=== PATIENT | female | born 2005 ===

== ENCOUNTER 2025-09-15 13:30 | Outpatient (REF) | payer OTHER, SELFPAY ==
[2025-09-16 10:15] LABS: Bacterial Vaginosis PCR NEGATIVE (Negative); Candida Group PCR NOT DETECTED (Not Detect); Candida glab krusei PCR NOT DETECTED (Not Detect); Trichomonas vaginalis PCR NOT DETECTED (Not Detect)
[2025-09-16 10:46] LABS: CT PCR NOT DETECTED (Not Detect.); NG PCR NOT DETECTED (Not Detect.)
== END 2025-09-15 13:31 | disposition home or self-care (01) ==
LOC: HO.LNP 13:30
PROVIDERS: Visit Provider Advanced Practice Midwife
DX: N92.0 Excessive and frequent menstruation with regular cycle (principal); N94.6 Dysmenorrhea, unspecified; N93.8 Other specified abnormal uterine and vaginal bleeding; Z20.2 Contact with and (suspected) exposure to infections with a predominantly sexual mode of transmission
CPT/HCPCS: 81515; 87491; 87591

== ENCOUNTER 2025-09-15 13:30 | Outpatient (AMB) | payer OTHER, SELFPAY ==
--- NOTE | 2025-09-15 13:45 | MHC.OFFVIS ---
Vital Signs 09/15/25 13:50 Height 5 ft 5 in Weight 220 lb BMI 36.6 BP 120/72 Intake Visit Reasons: Excessive & Frequent Menses Manager Actuarial Required: No Electrical Prospecting Supervisor: Electrical Prospecting Supervisor offered & declined Accompanied by: Significant Other Is last menstrual period known: Yes Last menstrual period: 08/27/25 Post menopausal: No Patient : No HPI Comments Details: Patient is informed of ambient [facility] program and consents to its use during the visit The patient is a 19 year old female presenting for evaluation of heavy and painful periods. She is new to the office and here to establish PETROLOGIST care. Her boyfriend Marin is present and she request he remain in the room for the exam. She has had heavy periods since age 9, which have become significantly worse since a loss in November. She experiences severe premenstrual symptoms, including vomiting and nausea, starting a week before her period. The patient rates her menstrual pain as 10/10, with intense pain felt on her spine. She reports passing clots and needing to change her pad about three times a day, noting that much of the blood is expressed only when wiping. Pain management with ibuprofen, Midol, heating pads, hot showers, and walking provides no relief. The patient experienced a loss at 18 weeks gestation in November. She has a history of Nexplanon use a for 10 months, during which she was amenorrheic but had emotional side effects; it was removed to attempt conception. She has an aversion to oral contraceptive pills due to a prior negative mental health experience in 2022 and is also fearful of IUDs. The patient is not currently using any form of control, citing mental health reasons. Recent lab work done at an outside facility [facility] last week showed a normal TSH and T4 and she was not anemic, but her white blood cell count was elevated without a known cause. 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 - Menstrual history: Reports heavy and very painful periods, which have worsened since a loss. - Last menstrual period: The of last month. - Obstetric history: with one loss at 18 weeks. - Contraceptive history: Used Nexplanon for 10 months. Not currently using contraception. - Symptoms: Reports constant vaginal discharge with a self-perceived odor. 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 - Gastrointestinal: Reports nausea and vomiting for a week prior to menses. - Genitourinary: Reports menorrhagia with clots and severe dysmenorrhea (10/10 pain). Reports constant vaginal discharge with self-perceived odor. Denies dysuria. - Musculoskeletal: Reports intense back pain located on the spine with menses. - Psychiatric: Reports emotional symptoms and mood changes with prior Nexplanon use. Voices concerns about hormonal control's impact on her mental health and reports a history of a suicidal time in 2022 associated with pills ( not bcp in particular, but had taken pills in the suicide attempt). Physical Exam Vital Signs: BMI result Body Mass Index 36.6 Const Other: obese, pleasant woman General: cooperative, healthy appearing and no acute distress Orientation/consciousness: patient oriented x3 HEENT Other: glassess FT Head: Yes normocephalic Neck Neck: Yes full ROM Resp Effort & Inspection: normal respiratory effort and able to speak in complete sentences GI Inspection: Yes normal to inspection and Yes obesity Palpation (GI): Soft to palpation and nontender Other: - Pelvic: Speculum exam reveals a healthy-appearing cervix with some mucus present. On bimanual exam, the uterus is not enlarged, with no tenderness on palpation of the uterus or adnexa. External Female Exam: normal external appearance and normal appearance of the urethra Neuro General: patient oriented x3 Extrem General: Yes full ROM Assessment & Plan Assessment & Plan (1) Menorrhagia with regular cycle: Code(s): N92.0 - Excessive and frequent menstruation with regular cycle (2) Dysmenorrhea: Code(s): N94.6 - Dysmenorrhea, unspecified Plan Assessment and Plan 1. Menorrhagia and Dysmenorrhea The patient has a long-standing history of heavy, painful periods, which have worsened after a recent second-trimester loss. Her symptoms are severe, rated 10/10, and are associated with significant premenstrual nausea and vomiting. The differential diagnosis includes structural abnormalities such as uterine fibroids or ovarian cysts. Recent outside labs rule out anemia and thyroid dysfunction as causes. A pelvic exam was performed today to rule out infection, and swabs were taken. A pelvic ultrasound will be ordered to assess for structural causes. We will discuss management options, including hormonal therapies like an IUD, after the workup is complete. The patient has expressed significant hesitation about hormonal methods and IUDs. 2. Contraceptive Counseling The patient is not currently using any contraception and has significant reservations about hormonal methods due to past negative mental health experiences with OCPs and mood changes with Nexplanon. She also expressed fear of an IUD. Information regarding the IUD as a treatment for heavy menstrual bleeding was provided via a pamphlet. A definitive plan for contraception is deferred until the follow-up visit after her diagnostic evaluation is complete. 3. Vaginal Discharge The patient reports a constant discharge with a self-perceived odor. Vaginal swabs were collected during the pelvic exam to investigate for infectious etiologies. Discussion Notes I discussed the diagnostic plan for her heavy and painful periods with the patient. I explained that we would perform a pelvic exam today to check for infection and order a pelvic ultrasound to look for structural causes like fibroids or cysts. We reviewed her recent lab work from an outside facility, which showed normal thyroid function and no anemia, but an unexplained elevated white count. I introduced hormonal options, like the IUD, as a potential treatment for heavy bleeding, acknowledging her fears and providing her with an informational pamphlet. The plan is for her to get the ultrasound and then follow up in about two weeks to review all results and decide on a treatment plan. I provided her with return precautions, instructing her to go to the hospital for bleeding that saturates a pad every hour for more than four hours. Orders: Orders CT NG by PCR Vag/Cerv Today N93.8 - Other specified abnormal uterine and vaginal bleeding Bacterial Vaginosis Panel Today N93.8 - Other specified abnormal uterine and vaginal bleeding US pelvic and transvaginal 1 Week N93.8 - Other specified abnormal uterine and vaginal bleeding Patient Instructions: Discussion Notes I discussed the diagnostic plan for her heavy and painful periods with the patient. I explained that we would perform a pelvic exam today to check for infection and order a pelvic ultrasound to look for structural causes like fibroids or cysts. We reviewed her recent lab work from an outside facility, which showed normal thyroid function and no anemia, but an unexplained elevated white count. I introduced hormonal options, like the IUD, as a potential treatment for heavy bleeding, acknowledging her fears and providing her with an informational pamphlet. The plan is for her to get the ultrasound and then follow up in about two weeks to review all results and decide on a treatment plan. I provided her with return precautions, instructing her to go to the hospital for bleeding that saturates a pad every hour for more than four hours. - Please go to the senior front end engineer to schedule your pelvic ultrasound. - Schedule a follow-up appointment in about two weeks to go over your results and make a plan. - You do not need any new blood work done at this time. - Go to the hospital if you have very heavy vaginal bleeding where you are soaking through one pad every hour for more than four hours. - Please sign a release form so we can obtain your medical records from [facility]. Coding Level of Care Code New Pt Level 3 (63085) Diagnoses Menorrhagia with regular cycle N92.0 Dysmenorrhea N94.6
[2025-09-15 13:50] VITALS: BP 120/72; BMI 36.6
--- OUTSIDE RECORDS SUMMARY | 2025-09-15 20:40 | XMS_ITS | Clinical Summary ---
Author Organization [facility] Address [address] [place] [address] Phone Care Team Providers Care Supervisor Wheel Shop Name Role Phone Reyna Brooks MD Primary C are Provider Allergies No known active allergies Medications VITAMIN B-6 25 MG tablet Take by mouth daily. 09/03/20 24 Active NIGHTTIME SLEEP-AID, DOXYLAMN, 25 mg tablet Take by mouth. 09/03/20 24 Active multivitamin with minerals Take by mouth. Activ e aspirin 81 mg chewable tabletIndications: Supervision of normal first teen in first trimester Take 2 tablets (162 mg total) by mouth daily. 180 tablet 3 09/06/20 24 Active Additional Information Patient not taking.Reported on 10/22/2024 diphenhydrAMINE 25 mg ODT Take 1 tablet (25 mg total) by mouth nightly at bedtime as needed. 30 tablet 1 09/24/20 24 Active Additional Information Patient not taking.Reported on 10/22/2024 ondansetron (ZOFRAN-ODT) 4 MG disintegrating tablet Take 1 tablet (4 mg total) by mouth every 6 (six) hours as needed for nausea. 20 tablet 1 10/22/19 25 Active Active Problems Problem Noted Date Diagnosed Date Maternal varicella, non-immune 10/02/2024 Overview (10/02/2024): Offer varivax pp Obesity in 09/24/2024 Overview (09/24/2024): Obesity in (BMI >30) BMI at Intake 37 Date Obesity plan of care discussed Pre- BMI > 45 transfer to tertiary care - BMI measured at first in- person appointment, applies to patients entering entering into care from 04/05/24 on Recommend daily baby aspirin (162 mg daily) if another risk factor is present (nulliparity, family h/o pre-eclampsia in mother or sister, age >= 35, IVF , previous with SGA, previous stillbirth, interval >= 10 years between pregnancies) First trimester screen for diabetes - HgbA1c or 1-hr glucose tolerance test Nutrition counseling 11-20lb weight gain surveillance: Pre- BMI 35.0-39.9, weekly testing at 36 weeks, EFW at 32 and 36 weeks Pre- BMI 40 or more, weekly testing at 34 weeks, EFW 32 and 36 weeks Induction only if indicated PP lovenox according to guidelines Hx of suicide attempt 09/24/2024 Overview (09/24/2024): Prior to . Pt tried to overdose on pills. Pt states she was in-patient and then received outpatient therapy. No meds/therapy as of FOB, pt reports feeling stable Assessment & Plan (09/24/2024 2:18 PM EST): Prior to . Pt tried to overdose on pills. Pt states she was in-patient and then received outpatient therapy. No meds/therapy as of FOB, pt reports feeling stable Supervision of normal first teen in first trimester 09/10/2024 Overview (10/22/2024): Please give info on [facility] at [facility] No OB-CMI score has been filled out for this encounter. Group PN care? * screening - plans cfdna and carrier screening neg Baby ASA- indicated (obesity, nullip, mom and grandmother had PEC) reviewed and rx sent at intake Rh * GC/Chlam * PAP too young for paps Flu declines COVID-19 received vaccine x 2--rec booster at FOB Hgb * GTT * Repeat RPR * Tdap * RSV * EPDS * PPBC * GBS * Feeding Plan considering, pt's mom very supportive of FOB: Orthodoxy Assessment & Plan (10/22/2024 4:32 PM EST): Olga here with her mom and Orthodoxy. Reports feeling ongoing n/v. Some days better than other. Doesn't seem to matter what she eats. Was seen at [facility] for n/v and feels much better than she did at that point. Would like to try zofran again. Rx provided We discussed upcoming FAS, which was ordered. Advised expectation for quickening CHRIS 4 wks Assessment & Plan (09/24/2024 2:16 PM EST): Olga is an 18yo @ 9+6 wks by sure, normal LMP, c/w 1T US Pt reports feeling better since starting unisom/b6. We discussed 1T comforts and typically well tolerated food. Pt here with her mom and FOB Orthodoxy who both appear very supportive of pt and . Pt oriented to practice Reviewed 1T US Ordered all 1T labs, pt accepts cfDNA and carrier screening as well. Limited PE completed Social History Tobacco Use Types Packs/Day Years Used Date Smoking Tobacco: Never Smokeless Tobacco: Never Tobacco Cessation:Counseling Given: Not Answered Alcohol Use Standard Drinks/Week Comments Never 0 (1 standard drink = 0.6 oz pur e alcohol) Education Answer Date Recorded Are you interested in more education? Not on tara e 09/03/2024 Are you concerned about learning? Not on file 09/03/2024 No 09/03/2024 No 09/03/2024 Digital Access Answer Date Recorded No 09/03/2024 No 09/03/2024 Reliable internet access at home? Not on file 09/03/2024 Device with a working camera? Not on file Comments No Sex and Gender Information Value Date Recorded Sex Assigned at Not on file Legal Sex Female 3:22 PM EST Gender Identity Not on file Sexual Orientation Not on file Last Filed Vital Signs Vital Sign Reading Time Taken Comments Blood Pressure 138/76 10/22/2024 4:17 PM EST Pulse - - Temperature - - Respiratory Rate - - Oxygen Saturation - - Inhaled Oxygen Concentration - - Weight 102.9 kg (226 lb 12. 8 oz) 10/22/2024 4:17 PM EST Height 165.1 cm (5' 5 ) 09/06/2024 9:46 AM EST Body Mass Index 37.74 09/06/2024 9:46 AM EST Body Mass Index Percentile 98.17% 10/22/2024 4:1 7 PM EST Growth Chart: [facility] (Girls, 2- 20 Years) Plan of Treatment Health Maintenance Due Date Last Done Comments DEVELOPMENTAL/BEHAVIORAL SCREENING (PHQ, PSC, or SWYC) 2008 DEPRESSION SCREENING 2017 CHLAMYDIA SCREENING 2021 MENINGOCOCCAL VACCINES (B) (1 of 2 - Standard) 2021 ADOLESCENT UNIVERSAL LIPID SCREENING 2022 INFLUENZA VACCINE (#1) 2025 09/04/2020 COVID-19 VACCINE (3 - season) 2025 04/24/2021, 04/03/2021 SMOKING Hx and SMOKELESS TOBACCO SCREENING 09/06/2025 09/06/2024 BMI ASSESSMENT 10/22/2025 10/22/2024 COMBINED DTaP,Tdap,Td (7 - Td or Tdap) 03/05/2027 03/05/2017, 02/05/2010, 02/05/2010, Additional history exists HEPATITIS B VACCINES Completed 09/18/2006, 01/10/2006, 2005, Additional history exists HIB VACCINES Completed 01/16/2007, 01/04, 06/19/2006, Additional history exists PNEUMOCOCCAL VACCINES (0-49 years) Aged Out 01/16/2007, 09/18/2006, 03/13/2006, Additional history exists No longer eligible based on patient's age to complete this topic HEPATITIS A VACCINES Completed 03/18/2008, 01/17/20 07 MMR VACCINES Completed 02/07/2011, 05/0 02/2011, 01/16/2007 VARICELLA VACCINES Completed 02/07/2011, 0 02/07/2011, 01/16/2007 HPV VACCINES Completed 03/15/2019, 03/05/2017 MENINGOCOCCAL VACCINES (ACWY) Completed 01/28/2022, 03/05/2017 HEPATITIS C SCREENING Completed 09/27/2024, 024 HIV ONE-TIME SCREENING (18-65 YEARS) Completed 09/27/2024 Medical Devices Not on file Procedures Procedure Name Priority Date/Time Associated Diagnosis Comments HEPATITIS C ANTIBODY, QUALITATIVE Routine 09/27/2024 11:07 AM EST Need for hepatitis C screening test from Last 3 Months or Most Recently Relevant to Health Maintenance Results * Hepatitis C antibody, qualitative (09/27/2024 11:07 AM EST) HCV NON-REACTIV E NON-REACTI VE [facility] Blood 09/27/2024 11:0 7 AM EST 09/27/2024 11:16 AM EST us Amanda Díaz CNM LAB BLOOD BKR ORDERABLES F inal Result [facility] [address] [place] [address] from Last 3 Months or Most Recently Relevant to Health Maintenance Insurance [address] [place] [address]O [facility] Care Teams Supervisor Wheel Shop Relationship Specialty Start Date End Date Reyna Brooks MD [facility] [place] [address] PCP - General Pediatrics 09/03/24 Additional Source Comments The information contained in this document represents components of the legal health record. It is not the complete legal health record.[facility]
--- OUTSIDE RECORDS SUMMARY | 2025-09-15 20:40 | XMS_ITS | Patient Health Record ---
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 Name Role Phone MEGAN WHELAN Unavailable [phone] Allergies No Known Allergies Results Component Value Reference Range Flag Notes Iron and TIBC-[id number] Reviewed date:09/07/2025 04:21:47 PM Interpretation: Performing Lab:[facility] [place], [address] [place] [address], Phone - [phone], Director - MDJodry Notes/Report: Iron Bind.Cap.(TIBC) 406 250-450 ug/dL UIBC 340 131-425 ug/dL Iron 66 27-159 ug/dL Iron Saturation 16 15-55 % Vitamin [id number] Reviewed date:09/07/2025 04:21:47 PM Interpretation: Performing Lab:[facility] [place], [facility] [place], Phone - [phone], Director - MDJodry Notes/Report: Vitamin B12 150 899-9512 pg/mL Urinalysis, Complete-[id number] Reviewed date:09/08/2025 01:17:04 PM Interpretation: Performing Lab:[facility], [address] [place] [address], Phone - [phone], Director - MDJodry Notes/Report: Specific [place] 1.027 1.005-1.030 pH 5.5 5.0-7.5 Urine-Color Yellow Yellow Appearance Cloudy Clear A WBC Esterase Trace Negative A Protein 1+ Negative/Trace A Glucose Negative Negative Ketones Negative Negative Occult Blood 3+ Negative A Bilirubin Negative Negative Urobilinogen,Semi-Qn 1.0 0.2-1.0 mg/dL Nitrite, Urine Negative Negative Microscopic Examination See below: M icroscopic was indicated and was performed. WBC 11-30 0 - 5 /hpf A RBC 11-30 0 - 2 /hpf A Epithelial Cells (non renal) >10 0 - 10 /hpf A Casts None seen None seen /lpf Bacteria Few None seen/Few T4 and TSH-[id number] Reviewed date:09/07/2025 04:21:47 PM Interpretation: Performing Lab:[facility] [place], [address] [facility], Phone - [phone], Director - Gm Notes/Report: TSH 1.980 0.450-4.500 uIU/mL Thyroxine (T4) 7.6 4.5-12.0 ug/dL Vitamin D, 96-Bidtbcp-[id number] Reviewed date:09/08/2025 01:16:58 PM Interpretation: Performing Lab:[facility] [place], [address] [place] [address], Phone - [phone], Director - Gm Notes/Report: Vitamin D, 25-Hydroxy 12.5 30.0-100.0 ng/mL L Vitamin D deficiency has been defined by the [place] [employer] and an Endocrine Society practice guideline as a level of serum 25-OH vitamin D less than 20 ng/mL (1,2). The Endocrine Society went on to further define vitamin D insufficiency as a level between 21 and 29 ng/mL (2). 1. IOM ([place] [employer]). 2010. Dietary reference intakes for calcium and D. [place]: The National Academies Press. 2. Brittany MF, Anshul GERARD, Colleen JALLOH, et al. Evaluation, treatment, and prevention of vitamin D deficiency: an Endocrine Society clinical practice guideline. JCEM. 2010; 96(7):1911-30. Lipid Panel-[id number] Reviewed date:09/08/2025 01:16:58 PM Interpretation: Performing Lab:[facility] [place], [address] [facility], [place], Phone - [phone], Director - Gm Notes/Report: Cholesterol, Total 206 100-169 mg/dL H Triglycerides 335 0-89 mg/dL H HDL Cholesterol 37 >39 mg/dL L VLDL Cholesterol Evelio 58 5-40 mg/dL H LDL Chol Calc (NIH) 111 0-109 mg/dL H T4F+T3Free Reviewed date:09/07/2025 04:21:47 PM Interpretation: Performing Lab:[facility] [place], [address] [place] [address], Phone - [phone], Director - Gm Notes/Report: Thyroxine (T-4), Serum 9.7 Reference Range: Adults: 4.2 - 13.0 Free T-3 3.6 Reference Range: 11 - 19y: 2.3 - 5.0 Triiodothyronine (T-3), Serum 141 Reference Range: Adults: 55 - 170 Free Thyroxine 1.31 Reference Range: 11 - 19y: 0.93 - 1.60 CBC With Differential/Platel et-[id number] Reviewed date:09/08/2025 01:16:58 PM Interpretation: Performing Lab:[facility] [place], [address] [place] [address], Phone - [phone], Director - Gm Notes/Report: WBC 15.0 3.4-10.8 x10E3/uL H RBC 5.15 3.77-5.28 x10E6/uL Hemoglobin 15.2 11.1-15.9 g/dL Hematocrit 46.0 34.0-46.6 % MCV 89 79-97 fL MCH 29.5 26.6-33.0 pg MCHC 33.0 31.5-35.7 g/dL RDW 12.5 11.7-15.4 % Platelets 441 150-450 x10E3/uL Neutrophils 63 Not Estab. % Lymphs 27 Not Estab. % Monocytes 5 Not Estab. % Eos 4 Not Estab. % Basos 1 Not Estab. % Neutrophils (Absolute) 9.5 1.4-7.0 x10E3/uL H Lymphs (Absolute) 4.0 0.7-3.1 x10E3/uL H Monocytes(Absolute) 0.7 0.1-0.9 x10E3/uL Eos (Absolute) 0.6 0.0-0.4 x10E3/uL H Baso (Absolute) 0.1 0.0-0.2 x10E3/uL Immature Granulocytes 0 Not Estab. % Immature Grans (Abs) 0.0 0.0-0.1 x10E3/uL Comp. Metabolic Panel (14)-3 [id number] Reviewed date:09/07/2025 04:23:02 PM Interpretation: Performing Lab:[facility] [place], [address] [place] [address], Phone - [phone], Director - Gm Notes/Report: Glucose 91 70-99 mg/dL BUN 7 6-20 mg/dL Creatinine 0.77 0.57-1.00 mg/dL eGFR 114 >59 mL/min/1.73 BUN/Creatinine Ratio 9 9-23 Sodium 141 134-144 mmol/L Potassium 4.5 3.5-5.2 mmol/L Chloride 104 96-106 mmol/L Carbon Dioxide, Total 25 20-29 mmol/L Calcium 9.8 8.7-10.2 mg/dL Protein, Total 7.4 6.0-8.5 g/dL Albumin 4.5 4.0-5.0 g/dL Globulin, Total 2.9 1.5-4.5 g/dL Bilirubin, Total <0.2 0.0-1.2 mg/dL Alkaline Phosphatase 107 42-106 IU/L H AST (SGOT) 17 0-40 IU/L ALT (SGPT) 14 0-32 IU/L Reason For Referral Reason Evaluate & Treat H eavy Periods Diagnosis 1 Excessive and freque nt menstruation with regular cycle (N92.0) Referral Organization [facility] Referring Provider First Name MEGAN Referring Provider Last Name TIP Referring Provider Speciality Internal edicine Referred Provider Specialty OB - Gynecol ogy General Notes Richa Scales 1 10/24/2024 11:24:05 AM EST > Referral to [facility] and faxed, p. [phone], f. [phone] Referral Priority Routine Reason Evaluate & Treat M ental Health Concerns Diagnosis 1 Mental health proble m (F48.9) Referral Organization [facility] Referring Provider First Name MEGAN Referring Provider Last Name TIP Referring Provider Speciality Internal edicine Referred Provider Specialty Psychiatry General Notes Richa Scales 1 10/24/2024 11:26:03 AM EST > Referral to [facility] psychiatry, gave patient information, patient will book themselves Referral Priority Routine Medications Medication SIG (Take, Route, Frequency, Duration) Notes Start Date End Date Status Cholecalciferol 1.25 MG (58218 UT) Capsule 1 capsule Orally once a week; Duration: 60 days 09/08/2025 Active Social History Section Notes: Patient is a [employer]PER[employer] and in [employer] Problems Problem Type SNOMED Code ICD Code Onset Dates Problem Status W/U Status Risk Notes Problem Vitamin B>12< deficiency anaemia (00284741) Vitamin B12 deficiency anemia, unspecified (D51.9) Active confirmed Problem Excessive and frequent menstruation (550653687) Excessive and frequent menstruation with regular cycle (N92.0) Active confirmed Problem Anxiety (94298101) Anxiety (F41.9) Active confirmed Problem Vitamin D deficiency (52231705) Vitamin D deficiency (E55.9) Active confirmed Problem Leukocytosis (030751958) Leukocytosis, unspecified type (D72.829) Active confirmed Problem Mental health problem (089451951) Mental health problem (F48.9) Active confirmed Vital Signs Heart Rate 82 /min 08/24/2025 Oximetry 99 % 08/24/2025 Blood pressure diastolic 80 mm Hg 08/24/2025 BMI Percentile 97.89 % 08/24/2025 Height 65 in 08/24/2025 Blood pressure systolic 132 mm Hg 08/24/2025 Weight 227.3 lbs 08/24/2025 BMI 37.82 kg/m2 08/24/2025 Encounters Encounter Location Date Provider Diagnosis [facility] [address] [place] [address] 08/24/2025 MEGAN TIP Bleeding R58 ; Menta l health problem F48.9 ; Depression F32.A ; Anxiety F41.9 and Blood pressure check Z01.30 [facility] [address] [address] 09/08/2025 MEGAN TIP Leukocytosis, unspec ified type D72.829 and Lipid screening Z13.220 Assessments Encounter Date Diagnosis (ICD Code) Assessment Notes Treatment Notes Treatment Clinical Notes Section Notes 08/24/2025 Bleeding (ICD-10 - R58) Olga is a 19-year-old female who presents to the office today as a new patient. Medication, surgeries, medical history all reviewed with patient in office today. #Previable PPROM: Performed in November 2024 #Hypertension: Was previously evaluated by [facility] cardiology on 02/15/2025 due to hypertension however patient did not return to the office for 3 months follow-up.. At this appointment an echocardiogram was ordered however does not appear as though it was obtained.. Blood pressure in office today is 132/80, will correlate with lab work. #Blood clots (MENSES): Patient admits to heavy blood clotting with her periods after her procedure that was done in November. She admits that she was seen by gynecology earlier this year after her vaginal delivery and a D&C for retained placenta. Patient would not like to trial control at this time, I advised patient to be seen by [facility]ERR[facility] WORK[facility] for further evaluation as this has been occurring since her D&C in November. She would like to be seen at [facility], patient referred to [facility] at this time. #Mental health concerns: Patient admits that all of the SSRIs that she has tried in the past caused suicidal ideation. Upon reviewing patient's PHQ-9 her answer for thoughts of hurting yourself or wish to be better off she circled several days. Upon questioning she states that she did have a suicide attempt in 2022 where she took pills and immediately told her mother. She admits that she was hospitalized inpatient. Patient admits that she does not have a plan currently, she states that the majority of her mental health concerns do stem from grief. Patient given multiple different resources on therapy, psychiatry, crisis and urgent care mental health in the office today. Additionally placing [facility] psychiatrist referral for the patient. Patient would benefit from speaking with psychiatrist in regards to trialing different medications #Therapy: Currently in therapy due to grief from her loss of her fetus in November 2024. All questions have been answered to patient's satisfaction. Patient verbalized understanding of diagnosis and treatments explained. Advised to call sooner prior to next visit it any questions/concerns arise. Case discussed with Stephen NGO who reviewed the assessment and plan. Chart, medications, labs, vital signs reviewed. Dictation was accomplished with the use of Correlor voice recognition software, which is prone to medical misidentifications and grammatical errors. This are unintentional and the practitioner does try to identify and correct these, but some could still be present. Please do not hesitate to contact practitioner for clarification. 08/24/2025 Mental health problem (ICD-10 - F48.9) Olga is a 19-year-old female who presents to the office today as a new patient. Medication, surgeries, medical history all reviewed with patient in office today. #Previable PPROM: Performed in November 2024 #Hypertension: Was previously evaluated by [facility] cardiology on 02/15/2025 due to hypertension however patient did not return to the office for 3 months follow-up.. At this appointment an echocardiogram was ordered however does not appear as though it was obtained.. Blood pressure in office today is 132/80, will correlate with lab work. #Blood clots (MENSES): Patient admits to heavy blood clotting with her periods after her procedure that was done in November. She admits that she was seen by gynecology earlier this year after her vaginal delivery and a D&C for retained placenta. Patient would not like to trial control at this time, I advised patient to be seen by [facility]ERR[facility] WORKER for further evaluation as this has been occurring since her D&C in November. She would like to be seen at [facility], patient referred to [facility] at this time. #Mental health concerns: Patient admits that all of the SSRIs that she has tried in the past caused suicidal ideation. Upon reviewing patient's PHQ-9 her answer for thoughts of hurting yourself or wish to be better off she circled several days. Upon questioning she states that she did have a suicide attempt in 2022 where she took pills and immediately told her mother. She admits that she was hospitalized inpatient. Patient admits that she does not have a plan currently, she states that the majority of her mental health concerns do stem from grief. Patient given multiple different resources on therapy, psychiatry, crisis and urgent care mental health in the office today. Additionally placing [facility] psychiatrist referral for the patient. Patient would benefit from speaking with psychiatrist in regards to trialing different medications #Therapy: Currently in therapy due to grief from her loss of her fetus in November 2024. All questions have been answered to patient's satisfaction. Patient verbalized understanding of diagnosis and treatments explained. Advised to call sooner prior to next visit it any questions/concerns arise. Case discussed with Stephen NGO who reviewed the assessment and plan. Chart, medications, labs, vital signs reviewed. Dictation was accomplished with the use of Correlor voice recognition software, which is prone to medical misidentifications and grammatical errors. This are unintentional and the practitioner does try to identify and correct these, but some could still be present. Please do not hesitate to contact practitioner for clarification. 09/08/2025 Leukocytosis, unspecified type (ICD-10 - D72.829) 09/08/2025 Lipid screening (ICD-10 - Z13.220) 08/24/2025 Depression (ICD-10 - F32.A) Olga is a 19-year-old female who presents to the office today as a new patient. Medication, surgeries, medical history all reviewed with patient in office today. #Previable PPROM: Performed in November 2024 #Hypertension: Was previously evaluated by [facility] cardiology on 02/15/2025 due to hypertension however patient did not return to the office for 3 months follow-up.. At this appointment an echocardiogram was ordered however does not appear as though it was obtained.. Blood pressure in office today is 132/80, will correlate with lab work. #Blood clots (MENSES): Patient admits to heavy blood clotting with her periods after her procedure that was done in November. She admits that she was seen by gynecology earlier this year after her vaginal delivery and a D&C for retained placenta. Patient would not like to trial control at this time, I advised patient to be seen by DERRICK WORKER for further evaluation as this has been occurring since her D&C in November. She would like to be seen at [facility], patient referred to [facility] at this time. #Mental health concerns: Patient admits that all of the SSRIs that she has tried in the past caused suicidal ideation. Upon reviewing patient's PHQ-9 her answer for thoughts of hurting yourself or wish to be better off she circled several days. Upon questioning she states that she did have a suicide attempt in 2022 where she took pills and immediately told her mother. She admits that she was hospitalized inpatient. Patient admits that she does not have a plan currently, she states that the majority of her mental health concerns do stem from grief. Patient given multiple different resources on therapy, psychiatry, crisis and urgent care mental health in the office today. Additionally placing [facility] psychiatrist referral for the patient. Patient would benefit from speaking with psychiatrist in regards to trialing different medications #Therapy: Currently in therapy due to grief from her loss of her fetus in November 2024. All questions have been answered to patient's satisfaction. Patient verbalized understanding of diagnosis and treatments explained. Advised to call sooner prior to next visit it any questions/concerns arise. Case discussed with Stephen NGO who reviewed the assessment and plan. Chart, medications, labs, vital signs reviewed. Dictation was accomplished with the use of Correlor voice recognition software, which is prone to medical misidentifications and grammatical errors. This are unintentional and the practitioner does try to identify and correct these, but some could still be present. Please do not hesitate to contact practitioner for clarification. 08/24/2025 Anxiety (ICD-10 - F41.9) Olga is a 19-year-old female who presents to the office today as a new patient. Medication, surgeries, medical history all reviewed with patient in office today. #Previable PPROM: Performed in November 2024 #Hypertension: Was previously evaluated by [facility] cardiology on 02/15/2025 due to hypertension however patient did not return to the office for 3 months follow-up.. At this appointment an echocardiogram was ordered however does not appear as though it was obtained.. Blood pressure in office today is 132/80, will correlate with lab work. #Blood clots (MENSES): Patient admits to heavy blood clotting with her periods after her procedure that was done in November. She admits that she was seen by gynecology earlier this year after her vaginal delivery and a D&C for retained placenta. Patient would not like to trial control at this time, I advised patient to be seen by [facility]ERR[facility] WORKER for further evaluation as this has been occurring since her D&C in November. She would like to be seen at [facility], patient referred to [facility] at this time. #Mental health concerns: Patient admits that all of the SSRIs that she has tried in the past caused suicidal ideation. Upon reviewing patient's PHQ-9 her answer for thoughts of hurting yourself or wish to be better off she circled several days. Upon questioning she states that she did have a suicide attempt in 2022 where she took pills and immediately told her mother. She admits that she was hospitalized inpatient. Patient admits that she does not have a plan currently, she states that the majority of her mental health concerns do stem from grief. Patient given multiple different resources on therapy, psychiatry, crisis and urgent care mental health in the office today. Additionally placing [facility] psychiatrist referral for the patient. Patient would benefit from speaking with psychiatrist in regards to trialing different medications #Therapy: Currently in therapy due to grief from her loss of her fetus in November 2024. All questions have been answered to patient's satisfaction. Patient verbalized understanding of diagnosis and treatments explained. Advised to call sooner prior to next visit it any questions/concerns arise. Case discussed with Stephen NGO who reviewed the assessment and plan. Chart, medications, labs, vital signs reviewed. Dictation was accomplished with the use of Correlor voice recognition software, which is prone to medical misidentifications and grammatical errors. This are unintentional and the practitioner does try to identify and correct these, but some could still be present. Please do not hesitate to contact practitioner for clarification. 08/24/2025 Blood pressure check (ICD-10 - Z01.30) Olga is a 19-year-old female who presents to the office today as a new patient. Medication, surgeries, medical history all reviewed with patient in office today. #Previable PPROM: Performed in November 2024 #Hypertension: Was previously evaluated by [facility]ology on 02/15/2025 due to hypertension however patient did not return to the office for 3 months follow-up.. At this appointment an echocardiogram was ordered however does not appear as though it was obtained.. Blood pressure in office today is 132/80, will correlate with lab work. #Blood clots (MENSES): Patient admits to heavy blood clotting with her periods after her procedure that was done in November. She admits that she was seen by gynecology earlier this year after her vaginal delivery and a D&C for retained placenta. Patient would not like to trial control at this time, I advised patient to be seen by [facility] WORKER for further evaluation as this has been occurring since her D&C in November. She would like to be seen at [facility], patient referred to [facility] at this time. #Mental health concerns: Patient admits that all of the SSRIs that she has tried in the past caused suicidal ideation. Upon reviewing patient's PHQ-9 her answer for thoughts of hurting yourself or wish to be better off she circled several days. Upon questioning she states that she did have a suicide attempt in 2022 where she took pills and immediately told her mother. She admits that she was hospitalized inpatient. Patient admits that she does not have a plan currently, she states that the majority of her mental health concerns do stem from grief. Patient given multiple different resources on therapy, psychiatry, crisis and urgent care mental health in the office today. Additionally placing [facility] psychiatrist referral for the patient. Patient would benefit from speaking with psychiatrist in regards to trialing different medications #Therapy: Currently in therapy due to grief from her loss of her fetus in November 2024. All questions have been answered to patient's satisfaction. Patient verbalized understanding of diagnosis and treatments explained. Advised to call sooner prior to next visit it any questions/concerns arise. Case discussed with Stephen NGO who reviewed the assessment and plan. Chart, medications, labs, vital signs reviewed. Dictation was accomplished with the use of Correlor voice recognition software, which is prone to medical misidentifications and grammatical errors. This are unintentional and the practitioner does try to identify and correct these, but some could still be present. Please do not hesitate to contact practitioner for clarification. Plan Of Treatment Pending Test Test Name Order Date LIPID PANEL, STANDARD 08/24/2025 LIPID PANEL, STANDARD 09/08/2025 IRON, TIBC AND FERRITIN PANEL 08/24/2025 COMPREHENSIVE METABOLIC PANEL 08/24/2025 CBC (INCLUDES DIFF/PLT) 08/24/2025 CBC (INCLUDES DIFF/PLT) 09/08/2025 URINALYSIS, COMPLETE 08/24/2025 VITAMIN B12 08/24/2025 VITAMIN D,25-OH,TOTAL,IA 08/24/2025 TSH+T3+Free T4+T3 Free 08/24/2025 Next Appt Details Provider Name:MEGAN WHELAN, 11:00:00 AM, [address], [place], [address], Insurance Providers Payer Name Payer Address Payer Phone Subscriber Number Group Number Insured Name Patient Relationship to Insured Coverage Start Date Coverage End Date [facility] [address] [facility] [place] [address] [id number] Olga Sharma Self - patient is the insured Medical (General) History Medical History History ICD Code anxiety depression seasonal allergies eczema Surgical History Surgery Date(Month/Year) D&C 2024 Hospitalization History Reason Date(Month/Year) Mental Health Impatient
--- OUTSIDE RECORDS SUMMARY | 2025-09-15 20:40 | XMS_ITS | Patient Health Record ---
Author Organization [facility] Address [address] [facility] [place] [address] Support Name Relationship Address Phone Michelle Benavides Emergency Contact Unknown Unavaila ble Olga Sharma Guarantor Unknown [phone] Reason For Referral No Information Social History Sex Assigned At : Social History Observation Description Sex Assigned At Female Social History HIV Risk Assessment Social Info Question Answer Notes Additional Questions Is an HIV Risk Assessment being c onducted? Yes Have you been tested for HIV before? Yes Did you have a blood transfusion prior to 1985? No Do you have an unlicensed body piercing or tattoo? No Reproductive Life Plan: Social Info Question Answer Notes Reproductive Life Plan: Do you want to h ave children? Yes, I want to have children How long would you like to wait until you/your partner becomes ? not sure How sure are you that you will be able to use your control method without any problems? Very sure Human Trafficking: Social Info Question Answer Notes Human Trafficking Experienced: No Sexual History: Social Info Question Answer Notes Sexual History: Sexual History Reviewed: Partner s, Practices, Protection/Past STIs, Prevention of Currently sexually active? Yes Sexually active with: Men Number of male partners 1 Your sexual activities include: vaginal intercourse Number of partners in past 3 months: 1 Number of partners in past year: 1 Counseling Provided: Social Info Question Answer Notes Counseling Provided Please indicate the length of time, in minutes, that counseling was provided. 7 Counseling Was Provided By: liz Drugs/Alcohol: Social Info Question Answer Notes Drug/Alcohol Use Do you or have you used drugs? Yes, c urrently By what route are you taking drugs? Please check all that apply: Smoking Which drug(s) do you smoke? Marijuana Do you or have you used alcohol? No Food Access: Social Info Question Answer Notes Food Access The Client's current access to food is Secure Food Access Relationships: Social Info Question Answer Notes Relationships Has the client exper ienced any of the following: Client has never experienced harmful relationships Housing Social Info Question Answer Notes Housing The client's current living situation is: stable housing Tobacco Use: Social Info Question Answer Notes Tobacco Use: Do you/have you used tobacco? No Tobacco Smoking Status Never smoker Plan Of Treatment No Information Insurance Providers Payer Name Payer Address Payer Phone Subscriber Number Group Number Insured Name Patient Relationship to Insured Coverage Start Date Coverage End Date [employer] [address] [place] [address] [id number] Olga Sharma Self - patient is the insured
== END 2025-09-15 14:31 | disposition home or self-care (01) ==
LOC: HO.HWSM 13:30
PROVIDERS: Visit Provider Advanced Practice Midwife
DX: N92.0 Excessive and frequent menstruation with regular cycle (principal); N94.6 Dysmenorrhea, unspecified
CPT/HCPCS: 99203

== ENCOUNTER 2025-09-21 15:54 | Outpatient (REF) | payer OTHER, SELFPAY ==
--- NOTE | ~2025-09-21 | US_ITS ---
EXAMINATION: US PELVIS CLINICAL INFORMATION: Dysfunctional uterine bleeding. N93.8 - Other specified abnormal uterine and vaginal bleeding COMPARISON: None available. TECHNIQUE: Ultrasound of the pelvis is performed using both transabdominal and transvaginal transducers along with Doppler. Transvaginal imaging is performed due to inadequate visualization transabdominally. FINDINGS: Uterus: The uterus is anteverted and measures 7.4 x 3.4 x 4.7 cm cm. The double wall endometrial thickness is 5-6 mm. The uterus is smooth in contour and has normal myometrial echogenicity. No visible fibroid. Adnexa: Both ovaries are visualized. There is normal color flow to the adnexa. There is no ovarian torsion. There is no pelvic ascites or fluid collection. Right ovary measures 3.7 x 2.2 x 2.3 cm cm. Left ovary measures 3.3 x 1.8 x 2.2 cm. US/US pelvic and transvaginal IMPRESSION: Electronically signed by: Kendall Domínguez MD 09/21/2025 04:40 PM [facility]
--- OUTSIDE RECORDS SUMMARY | 2025-09-21 20:45 | XMS_ITS | Patient Health Record ---
Author Organization [facility] [address] Address [address] [place] [address] Care Team Providers Care Database Designer Name Role Phone MEGAN WHELAN Unavailable [phone] Allergies No Known Allergies Results Component Value Reference Range Flag Notes Iron and [id number]-[id number] Reviewed date:09/07/2025 04:21:47 PM Interpretation: Performing Lab:[facility] [place], [address] [place] [address], Phone - [phone], Director - MDJodry Notes/Report: Iron Bind.Cap.(TIBC) 406 250-450 ug/dL UIBC 340 131-425 ug/dL Iron 66 27-159 ug/dL Iron Saturation 16 15-55 % Vitamin [id number] Reviewed date:09/07/2025 04:21:47 PM Interpretation: Performing Lab:[facility] [place], [facility] [place], Phone - [phone], Director - MDJodry Notes/Report: Vitamin B12 020 440-6313 pg/mL Urinalysis, Complete-[id number] Reviewed date:09/08/2025 01:17:04 PM Interpretation: Performing Lab:[facility] [place], [employer] [facility], Phone - [phone], Director - MDJodry Notes/Report: Specific [place] 1.027 1.005-1.030 pH 5.5 5.0-7.5 Urine-Color Yellow [...] None seen /lpf Bacteria Few None seen/Few CBC With Differential/Platel et-[id number] Reviewed date:09/08/2025 01:16:58 PM Interpretation: Performing Lab:[facility], [address] [facility], Phone - [phone], Director - MDJoy Notes/Report: WBC 15.0 3.4-10.8 x10E3/uL H RBC [...] % Immature Grans (Abs) 0.0 0.0-0.1 x10E3/uL T4 and TSH-[id number] Reviewed date:09/07/2025 04:21:47 PM Interpretation: Performing Lab:[facility] [place], [address] [facility], Phone - [phone], Director - Gm Notes/Report: TSH 1.980 0.450-4.500 uIU/mL Thyroxine (T4) 7.6 4.5-12.0 ug/dL Vitamin D, 69-Nesoyzw-[id number] Reviewed date:09/08/2025 01:16:58 PM Interpretation: Performing Lab:[facility] [place], [address] [facility], Phone - [phone], Director - Gm Notes/Report: Vitamin D, 25-Hydroxy 12.5 30.0-100.0 ng/mL L Vitamin D deficiency has been defined by the [place] of Medicine and an Endocrine Society practice guideline as a level of serum 25-OH vitamin D less than 20 ng/mL (1,2). The Endocrine Society went on to further define vitamin D insufficiency as a level between 21 and 29 ng/mL (2). 1. IOM ([place] of Medicine). 2010. Dietary reference intakes for calcium and D. [place]: The National Academies Press. 2. Brittany MF, Anshul NC, Colleen JALLOH, et al. Evaluation, treatment, and prevention of vitamin D deficiency: an Endocrine Society clinical practice guideline. JCEM. 2010; 96(7):1911-30. Lipid Panel-[id number] Reviewed date:09/08/2025 01:16:58 PM Interpretation: Performing Lab:[facility], [address] [place] [address], Phone - [phone], Director - Gm Notes/Report: Cholesterol, Total 206 100-169 mg/dL H Triglycerides 335 0-89 mg/dL H HDL Cholesterol 37 >39 mg/dL L VLDL Cholesterol Evelio 58 5-40 mg/dL H LDL Chol Calc (NIH) 111 0-109 mg/dL H Comp. Metabolic Panel (14)-3 96471 Reviewed date:09/07/2025 04:23:02 PM Interpretation: Performing Lab:[facility] [place], [address] [facility], Phone - [phone], Director - Gm Notes/Report: Glucose 91 70-99 [...] 0-40 IU/L ALT (SGPT) 14 0-32 IU/L T4F+T3Free Reviewed date:09/07/2025 04:21:47 PM Interpretation: Performing Lab:[facility] [place], [address], [place], Phone - [phone], Director - Gm Notes/Report: Thyroxine (T-4), Serum 9.7 Reference Range: Adults: 4.2 - 13.0 Free T-3 3.6 Reference Range: 11 - 19y: 2.3 - 5.0 Triiodothyronine (T-3), Serum 141 Reference Range: Adults: 55 - 170 Free Thyroxine 1.31 Reference Range: 11 - 19y: 0.93 - 1.60 Reason For Referral Reason Evaluate & Treat H eavy Periods Diagnosis 1 Excessive and freque nt menstruation with regular cycle (N92.0) Referral Organization [facility] Referring Provider First Name MEGAN Referring Provider Last Name TIP Referring Provider Speciality Internal edicine Referred Provider Specialty OB - Gynecol ogy General Notes Richa Scales 1 10/24/2024 11:24:05 AM EST > Referral to [facility] and faxed, p. [phone], f. [phone] Referral Priority Routine Reason Evaluate & Treat M ental Health Concerns Diagnosis 1 Mental health proble m (F48.9) Referral Organization [facility] Referring Provider First Name MEGAN Referring Provider Last Name TIP Referring Provider Speciality Internal edicine Referred Provider Specialty Psychiatry General Notes Richa Scales 1 10/24/2024 11:26:03 AM EST > [facility] psychiatry, gave patient information, patient will book themselves Referral Priority Routine Medications Medication SIG (Take, Route, Frequency, Duration) Notes Start Date End Date Status Cholecalciferol 1.25 MG (75404 UT) Capsule 1 capsule Orally once a week; Duration: 60 days 09/08/2025 Active Social History Section Notes: 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 [employer] Problems Problem Type SNOMED Code ICD Code Onset Dates Problem Status W/U Status Risk Notes Problem Vitamin B>12< deficiency anaemia (84657764) Vitamin B12 deficiency anemia, unspecified (D51.9) Active confirmed Problem Excessive and frequent menstruation (512418602) Excessive and frequent menstruation with regular cycle (N92.0) Active confirmed Problem Anxiety (48650017) Anxiety (F41.9) Active confirmed Problem Vitamin D deficiency (37680982) Vitamin D deficiency (E55.9) Active confirmed Problem Leukocytosis (178377271) Leukocytosis, unspecified type (D72.829) Active confirmed Problem Mental health problem (409124041) Mental health problem (F48.9) Active confirmed Vital Signs Heart Rate 82 /min 08/24/2025 Oximetry 99 % 08/24/2025 Blood pressure diastolic 80 mm Hg 08/24/2025 BMI Percentile 97.89 % 08/24/2025 Height 65 in 08/24/2025 Blood pressure systolic 132 mm Hg 08/24/2025 Weight 227.3 lbs 08/24/2025 BMI 37.82 kg/m2 08/24/2025 Encounters Encounter Location Date Provider Diagnosis [facility] [address] [place] [address] 08/24/2025 MEGAN TIP Bleeding R58 ; Menta l health problem F48.9 ; Depression F32.A ; Anxiety F41.9 and Blood pressure check Z01.[address] [facility] [address] [facility] [address] [place] [address] 09/08/2025 MEGAN TIP Leukocytosis, unspec ified type D72.829 and Lipid screening Z13.220 [facility] [address] [facility] [address] [place] [address] 09/19/2025 MEGAN TIP Assessments Encounter Date Diagnosis (ICD Code) Assessment Notes Treatment Notes Treatment Clinical Notes Section Notes 08/24/2025 Bleeding (ICD-10 - R58) Olga is a 19-year-old female who presents to the office today as a new patient. Medication, surgeries, medical history all reviewed with patient in office today. #Previable PPROM: Performed in November 2024 #Hypertension: Was previously evaluated by [facility] cardiology on 02/15/2025 due to hypertension however [...] I advised patient to be seen by DELICATESSEN MANAGER for further evaluation as this has been occurring since her D&C in November. She would like to be seen at [facility], patient referred to [facility] at this time. #Mental health concerns: Patient [...] health in the office today. Additionally placing [facility] psychiatrist referral for the patient. Patient would [...] Dictation was accomplished with the use of [employer] voice recognition software, which is prone to [...] November 2024 #Hypertension: Was previously evaluated by [facility] cardiology on 02/15/2025 due to hypertension however [...] I advised patient to be seen by DELICATESSEN MANAGER for further evaluation as this has been occurring since her D&C in November. She would like to be seen at [facility], patient referred to [facility] at this time. #Mental health concerns: Patient [...] health in the office today. Additionally placing [facility] psychiatrist referral for the patient. Patient would [...] Dictation was accomplished with the use of [employer] voice recognition software, which is prone to [...] November 2024 #Hypertension: Was previously evaluated by [facility] cardiology on 02/15/2025 due to hypertension however [...] I advised patient to be seen by DELICATESSEN MANAGER for further evaluation as this has been occurring since her D&C in November. She would like to be seen at [facility], patient referred to [facility] at this time. #Mental health concerns: Patient [...] health in the office today. Additionally placing [facility] psychiatrist referral for the patient. Patient would [...] Dictation was accomplished with the use of [employer] voice recognition software, which is prone to [...] November 2024 #Hypertension: Was previously evaluated by [facility] cardiology on 02/15/2025 due to hypertension however [...] I advised patient to be seen by DELICATESSEN MANAGER for further evaluation as this has been occurring since her D&C in November. She would like to be seen at [facility], patient referred to [facility] at this time. #Mental health concerns: Patient [...] health in the office today. Additionally placing [facility] psychiatrist referral for the patient. Patient would [...] Dictation was accomplished with the use of [employer] voice recognition software, which is prone to [...] November 2024 #Hypertension: Was previously evaluated by [facility] cardiology on 02/15/2025 due to hypertension however [...] I advised patient to be seen by DELICATESSEN MANAGER for further evaluation as this has been occurring since her D&C in November. She would like to be seen at [facility], patient referred to [facility] at this time. #Mental health concerns: Patient [...] health in the office today. Additionally placing [facility] psychiatrist referral for the patient. Patient would [...] Dictation was accomplished with the use of [employer] voice recognition software, which is prone to [...] 08/24/2025 Next Appt Details Provider Name:MEGAN WHELAN, 10:45:00 AM, [address], [place], [address], Insurance Providers Payer Name Payer Address Payer Phone Subscriber Number Group Number Insured Name Patient Relationship to Insured Coverage Start Date Coverage End Date [facility] [address] [place] [address] [phone] [id number] Olga Sharma Self - patient is the insured Medical (General) History Medical History History ICD Code anxiety depression seasonal allergies eczema Surgical History Surgery Date(Month/Year) D&C 2024 Hospitalization History Reason Date(Month/Year) Mental Health Impatient
--- OUTSIDE RECORDS SUMMARY | 2025-09-21 20:46 | XMS_ITS | Patient Health Record ---
Author Organization [facility] Address [address] [facility] [place] [address] Support Name Relationship Address Phone Michelle Benavides Emergency Contact Unknown Unavaila ble Olga Sharma Guarantor Unknown [phone] Reason For Referral No Information Social History [...] Insured Coverage Start Date Coverage End Date [facility] [address] [place] [address] [id number] Olga Sharma Self - patient is the insured
--- OUTSIDE RECORDS SUMMARY | 2025-09-21 20:46 | XMS_ITS | Clinical Summary ---
Author Organization [facility] Address [address] [place] [address] Phone Care Team Providers Care Flat Locker Name Role Phone Reyna Brooks MD Primary [...] Please give info on Healthy Families at [facility] No OB-CMI score has been filled out [...] considering, pt's mom very supportive of FOB: Denominational Assessment & Plan (10/22/2024 4:32 PM EST): Olga here with her mom and Denominational. Reports feeling ongoing n/v. Some days better than other. Doesn't seem to matter what she eats. Was seen at [facility] for n/v and feels much better than [...] Pt here with her mom and FOB Denominational who both appear very supportive of pt [...] 10/22/2024 4:1 7 PM EST Growth Chart: [facility] (Girls, 2- 20 Years) Plan of Treatment Health Maintenance Due Date Last Done Comments DEVELOPMENTAL/BEHAVIORAL SCREENING (PHQ, PSC, or SWYC) 2008 DEPRESSION SCREENING 2017 SMOKING Hx and SMOKELESS TOBACCO SCREENING 2018 CHLAMYDIA SCREENING 2021 MENINGOCOCCAL VACCINES (B) (1 of 2 - Standard) 2021 ADOLESCENT UNIVERSAL LIPID SCREENING 2022 INFLUENZA VACCINE (#1) 2025 09/04/2020 COVID-19 VACCINE (3 - season) 2025 04/24/2021, 04/03/2021 BMI ASSESSMENT 10/22/2025 10/22/2024 COMBINED DTaP,Tdap,Td (7 [...] AM EST) HCV NON-REACTIV E NON-REACTI VE [facility] Blood 09/27/2024 11:0 7 AM EST 09/27/2024 11:16 AM EST us Amanda Díaz CNM LAB BLOOD BKR ORDERABLES F inal Result [facility] [address] [place] [address] from Last 3 Months or Most Recently Relevant to Health Maintenance Insurance [facility] H[facility] Care Teams Flat Locker Relationship Specialty Start Date End Date Reyna Brooks MD [address] [place] [address] PCP - General Pediatrics 09/03/24 Additional Source Comments The information contained in this document represents components of the legal health record. It is not the complete legal health record.[facility]
== END 2025-09-21 15:55 | disposition home or self-care (01) ==
LOC: HO.US 15:54
PROVIDERS: Visit Provider Advanced Practice Midwife
DX: N93.8 Other specified abnormal uterine and vaginal bleeding (principal)
CPT/HCPCS: 76830; 76856

== ENCOUNTER → 2025-09-21 16:01 | Outpatient (BNV) | payer OTHER, SELFPAY | PROVIDERS: Visit Provider Radiology Diagnostic Radiology | DX: N93.8 Other specified abnormal uterine and vaginal bleeding (principal) | CPT/HCPCS: 76830; 76856 ==